=== PATIENT | female | born 1990 | race Hispanic/Latino ===

== ENCOUNTER 2023-12-21 11:27 | Observation (INO) | payer MEDICAID ==
[~2023-12-21] VITALS: Ht 152.4 cm; Wt 104.8 kg
[~2023-12-21 11:27] MED LIST: DOCU-116 PO; IBUP-2077 PO
[2023-12-21 11:29] VITALS: BP 129/75; PULSE 94; RESP 20; TEMP 99
[2023-12-21 11:59] LABS: BASOPHILS # (AUTO) 0.03 K/uL (0.00-0.20); BASOPHILS % (AUTO) 0.3 % (0.0-5.0); EOSINOPHILS % (AUTO) 0.9 % (0.0-8.0); HEMATOCRIT 35.1 % (36-48); IMMATURE GRANULOCYTE ABSOLUTE 0.09 K/uL (0-1); LYMPHOCYTES # (AUTO) 2.2 K/uL (1.0-4.8); LYMPHOCYTES % (AUTO) 19.1 % (21.0-51.0); MEAN CORPUSCULAR HEMOGLOBIN 29.9 pg (27.0-33.0); MEAN CORPUSCULAR HGB CONC 33.6 g/dL (32.0-36.0); MEAN CORPUSCULAR VOLUME 88.9 fL (79-99); MONOCYTES # (AUTO) 0.9 K/uL (0.1-1.0); MONOCYTES % (AUTO) 7.3 % (3.0-13.0); NEUTROPHILS # (AUTO) 8.3 K/uL (1.8-7.7); NEUTROPHILS % (AUTO) 71.6 % (40.0-77.0); PLATELET COUNT (AUTO) 243 K/uL (130-400); RED BLOOD CELL COUNT(AUTO) 3.95 MIL/uL (4.00-5.50); RED CELL DISTRIBUTION WIDTH 12.5 % (11.0-15.5); WHITE BLOOD COUNT (AUTO) 11.6 K/uL (4.8-10.8)
[2023-12-21 12:10] LABS: APPEARANCE,URINE CLEAR (CLEAR); BILIRUBIN,URINE NEGATIVE (NEGATIVE); COLOR,URINE COLORLESS (YELLOW); GLUCOSE, URINE (UA) NEGATIVE (NEGATIVE); KETONES,URINE NEGATIVE (NEGATIVE); LEUKOCYTE ESTERASE ,URINE NEGATIVE Leu/uL (NEGATIVE); NITRATE,URINE NEGATIVE (NEGATIVE); OCCULT BLOOD,URINE NEGATIVE (NEGATIVE); PROTEIN,URINE NEGATIVE (NEGATIVE); UROBILINOGEN,URINE 0.2 mg/dL (0.2-1.0)
[2023-12-21 12:16] LABS: CREATININE 0.6 mg/dL (0.5-1.0); POTASSIUM 3.7 mmol/L (3.5-5.1)
[2023-12-21 12:21] LABS: ALBUMIN 2.4 g/dL (3.5-5.0); BILIRUBIN,TOTAL 0.1 mg/dL (0.2-1.0); TOTAL PROTEIN, SERUM 6.7 g/dL (6.0-8.3); URIC ACID 4.1 mg/dL (2.6-7.2)
--- NOTE | 2023-12-21 12:22 | HMCIMG ---
US OB >14 WEEKS REASON: , ELEVATED BPS COMPARISON: None TECHNIQUE: Routine OB sonogram was performed. FINDINGS: There is a single fetus in cephalic presentation with positive motion and heartbeat, 161 BPM. Composite gestational age is 36 weeks 6 days. Placenta is anterior and grade 3 with IDA 12.9 cm. Estimated weight is 3153 g, 76th percentile for this gestational age. There is normal-appearing anatomy. IMPRESSION: 1. Single fetus cephalic presentation 36 weeks to 6 days composite gestational age.
[2023-12-21 12:23] LABS: INR <= 0.93 (0.85-1.15); PROTHROMBIN TIME 9.9 SEC (9.6-11.6)
[2023-12-21 12:24] LABS: PARTIAL THROMBOPLASTIN TIME 25.6 SEC (26.3-35.5)
[2023-12-21 12:26] LABS: ADD UA MICROSCOPIC NO
[2023-12-21 12:29] LABS: FIBRINOGEN 860 mg/dL (180-350)
[2024-01-06] MEDS ORDERED: PREN1TAB80 PO (18:57)
== END 2023-12-21 13:00 | disposition home or self-care (01) ==
LOC: EDH 11:27 → LDH 11:28
PROVIDERS: ADMIT Obstetrics & Gynecology; ATTEND Obstetrics & Gynecology
DX: O26.893 Other specified pregnancy related conditions, third trimester (principal); R10.9 Unspecified abdominal pain; Z3A.36 36 weeks gestation of pregnancy
CPT/HCPCS: 59025; 76805; 84550; 80053; 85025; 85384; 85610; 85730; 81003; 36415; G0378; G0379; A4351